=== PATIENT | female | born 1955 ===

== ENCOUNTER 2016-12-12 11:12 | Day surgery (SDC) | payer MEDICARE, MEDICAID ==
[2016-04-20 07:05] VITALS: BMI 28.1
[2016-12-12] MEDS ORDERED: Lactated Ringer's 1,000 ML IV ONE (11:55)
[2016-12-12] MEDS ORDERED: Bupivacaine HCl 0.25% PF (10 ml) Inj ONE ×2 (13:32)
[2016-12-12] MEDS ORDERED: Vancomycin 1 gm/D5W 200 ml 1 GM/200 ML BAG IVPB ONE (13:33)
[2016-12-12] MEDS ORDERED: HYDROmorphone 0.5 mg/0.5 ml ISec IVP PRN (14:09)
[2016-12-12] MEDS ORDERED: Oxycodone/Acetaminophen 5/325 mg Tab PO PRN (14:30)
[2016-12-12 15:29] VITALS: TEMP 97.6
[2016-12-12 15:43] VITALS: BP 127/62; PULSE 61; RESP 18; O2SAT 100
--- NOTE | 2016-12-12 17:36 | OP ---
PROCEDURE DATE: 12/12/2016 PREOPERATIVE DIAGNOSIS: Bilateral hemangiomas of the lower extremities. POSTOPERATIVE DIAGNOSIS: Bilateral hemangiomas of the lower extremities. PROCEDURE PERFORMED: Wide and deep excision of bilateral hemangiomas of the lower extremities. SURGEON: Sreekanth Martinez MD PROGRAM ADMINISTRATOR: General. ESTIMATED BLOOD LOSS: 30 mL. POSTOPERATIVE CONDITION: Stable. 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 She now want to undergo wide and deep excision of both. DESCRIPTION OF PROCEDURE: The patient was taken to the operating room, general anesthesia was administered. Both thighs were prepped and draped. Both 5-cm lesions were marked and attention was turned to the right thigh where elliptical incision was made medially surrounding the mass. It was dissected free deep into the thigh and completely removed. An underlying soft tissue mass was encountered and also removed. Bleeding was controlled using the Bovie. Bleeding blood vessel was repaired and the wound was irrigated with saline. Generous tissue flaps were raised using a Bovie and a greater than 30 sq. cm. adjacent tissue transverse closure was performed with multiple layers of Monocryl, subcuticular Monocryl, and skin clips. The above was repeated on the 5-cm hemangioma on the left side. The patient tolerated the procedure well and returned to the recovery room in stable condition. Sreekanth Martinez MD
== END 2016-12-12 16:02 | disposition home or self-care (01) ==
LOC: C.SDS 11:12
PROVIDERS: ATTEND Surgery
DX: D18.01 Hemangioma of skin and subcutaneous tissue (principal)
CPT/HCPCS: 11406; 12034; 88307; J1170; J3370; J7120